=== PATIENT | male | born 1945 | race Caucasian/White ===

== ENCOUNTER → 2018-05-27 08:23 | Outpatient (CLI) | payer MEDICARE ==
[2018-05-28 12:10] LABS: HEPATITIS C ANTIBODY <0.1 (0.0-0.9)
== END | disposition home or self-care (01) ==
LOC: D.US 05-26 08:30
PROVIDERS: Internal Medicine Gastroenterology
DX: R79.89 Other specified abnormal findings of blood chemistry (principal)

== ENCOUNTER → 2019-02-08 10:21 | Outpatient (CLI) | payer MEDICARE ==
[2019-02-08 11:52] LABS: APTT 27.8 SECONDS (22.8-39.4); INR 0.92 (0.85-1.17); PROTIME 11.9 SECONDS (11.6-15.0)
[2019-02-08 11:57] LABS: % SATURATION 12 % (15-55); IRON 55 ug/dl (35-150); TOTAL IRON BIND CAPACITY 434 ug/dl (260-445); UNSAT IRON BIND CAPACITY 379 ug/dl (150-375)
[2019-02-08 12:09] LABS: ALBUMIN 3.8 g/dL (3.4-5.0); BILIRUBIN - DIRECT 0.09 mg/dL (0.00-0.30); BILIRUBIN - INDIRECT 0.25 mg/dL (0.00-1.00); BILIRUBIN - TOTAL 0.34 mg/dL (0.2-1.3); PROTEIN - SERUM 7.8 g/dL (6.4-8.2)
[2019-02-09 08:25] LABS: ALPHA FETOPROTEIN -(TUMOR MRK) 0.8 ng/mL (0.0-8.3)
[2019-02-09 17:09] LABS: ANA REFLEX - DIRECT Negative (Negative)
[2019-02-10 15:16] LABS: MITOCHONDRIAL ANTIBODY 22.1 Units (0.0-20.0); SMOOTH MUSCLE ABS (ACTIN) 9 Units (0-19)
== END | disposition home or self-care (01) ==
LOC: D.LAB 02-07 08:30 → D.US 10:30
PROVIDERS: ATTEND Internal Medicine Gastroenterology
DX: K76.0 Fatty (change of) liver, not elsewhere classified (principal)